=== PATIENT | male | born 1950 | race Caucasian/White ===

== ENCOUNTER → 2016-12-01 | Day surgery (SDC) | payer OTHER ==
[~2016-12-01] VITALS: Ht 188 cm; Wt 98.0 kg
[~2016-12-01] MED LIST: 0.9% Sodium Chloride 1,000 ML IV ONE; OMEG-38 PO; Sodium Chloride LOK Flush 10 mL Syringe IV PRN; fentaNYL-PF 50 mCg/mL 2 mL Inj IVPUSH PRN
[2016-12-01 07:31] VITALS: BP 157/99; PULSE 69; RESP 14; O2SAT 97
[2016-12-01 08:27] VITALS: BP 125/81; PULSE 66; RESP 16; O2SAT 97
[2016-12-01 08:36] VITALS: BP 107/73; PULSE 68; RESP 16; O2SAT 97
[2016-12-01 08:41] VITALS: BP 117/86; PULSE 69; RESP 16; O2SAT 98
--- NOTE | 2016-12-01 08:53 | ENDO ---
[address] [address] ENDOSCOPY PROCEDURE PATIENT: KILEY RIDLEY : 1950 MR#: [id number] ADMIT: 12/01/2016 JOB ID: [id number] DATE: 12/01/2016 PROCEDURE: Colonoscopy. INDICATION: Screening. Patient's ASA classification is 2. Mallampati score is 2. MEDICATIONS: Versed at 3 mg; fentanyl 75 mcg. INSTRUMENT USED: [id number]. PREPARATION QUALITY: Good. PROCEDURE DETAILS: After informed consent was obtained, the patient was brought into the GI suite, where he was placed on oxygen via nasal cannula, and monitored with continuous pulse oximeter, telemetry, and blood pressure monitoring. A time-out was performed. Then, he was placed in a left lateral decubitus position, and medications were administered for sedation. Digital rectal exam was performed, which was unremarkable. Colonoscope was then inserted into the rectum and advanced under direct visualization to the cecum, which was identified by the presence of the ileocecal valve and appendiceal orifice. Once the cecum was reached, the colonoscope was withdrawn back into the rectum as the mucosa and lumen were examined. In the rectum, retroflexion was performed. Following retroflexion, remaining air in the rectum was suctioned, and procedure was completed. FINDINGS: 1. In the transverse colon, there were two polyps that ranged in size from 4 mm to 7 mm. Polyps were removed using a cold snare and hot snare respectively. 2. In the descending colon, there was an approximately 5 mm sessile polyp that was removed with a hot snare. 3. Scattered diverticula were seen throughout the left side of the colon. IMPRESSION: 1. Two transverse colon polyps. 2. Descending colon polyp. RECOMMENDATIONS: 1. Avoid NSAIDs and anticoagulants for 72 hours. 2. Fiber rich diet. 3. Repeat colonoscopy pending pathology results. COMPLICATIONS: None. ESTIMATED BLOOD LOSS: Less than 5 mL.
--- NOTE | 2016-12-05 16:55 | PATH ---
SURGICAL PATHOLOGY Attending Physician:Mary Kate Hunt CASE STATUS: Signed Out PATIENT NAME: KILEY RIDLEY PID: [id number] : 1950 DATE COLLECTED:12/01/2016 21:17 SPECIMEN: 1: Colon, Polyp 2: Colon, Polyp CLINICAL HISTORY: 1). TRANSVERSE COLON POLYPS 2). DESCENDING COLON POLYP FINAL DIAGNOSIS: 1. Transverse Colon Polyps, Biopsies: Tubular adenoma x1. Hyperplastic polyp x1. Additional step sections examined. 2. Descending Colon Polyp, Biopsy: Tubular adenoma. Additional step sections examined. ICD10: D12.3 D12.4 GROSS DESCRIPTION: The specimen is received in two formalin filled containers labeled with the patient's name. 1). The specimen is labeled "transverse colon polyp" and consists of 2 portions of tissue which aggregate to 0.3 x 0.3 x 0.2 CM. The specimen is entirely submitted in cassette 1A. 2). The specimen is labeled "descending colon polyp "and consists of a 0.5 x 0.5 x 0.4 CM portion of tissue which is entirely submitted in cassette 2A. 12/01/2016CA ICD-9 CODES: CPT CODES: 1: 44780 2: 50719 Electronically Signed Out Rosas Foy MD, Ph.D. [facility] Pathology [facility] [address], [place] [address] Technical component performed at [facility], [address] [place] [address] [address], [place], [address]
== END | disposition home or self-care (01) ==
LOC: END 00:18
PROVIDERS: ATTEND Internal Medicine Gastroenterology
DX: Z12.11 Encounter for screening for malignant neoplasm of colon (principal); D12.3 Benign neoplasm of transverse colon; D12.4 Benign neoplasm of descending colon; K63.5 Polyp of colon; K57.30 Diverticulosis of large intestine without perforation or abscess without bleeding; E78.00 Pure hypercholesterolemia, unspecified; R73.09 Other abnormal glucose; Z87.891 Personal history of nicotine dependence
CPT/HCPCS: 45385; G0500; J2250; J3010; J7030